=== PATIENT | female | born 1990 ===

== ENCOUNTER 2020-12-23 15:14 | Emergency (ER) | payer OTHER ==
[~2020-12-23] VITALS: Ht 154.9 cm; Wt 81.1 kg
[2020-12-23 16:14] VITALS: BP 130/79
--- NOTE | 2020-12-23 16:19 | NUR ---
PT REC'VD DISCHARGE INSTRUCTIONS AND EDUCATION. PT HAD NO FURTHER QUESTIONS. PT AMBULATED TO DC AREA, STEADY GAIT.
== END 2020-12-23 16:25 | disposition home or self-care (01) ==
LOC: ED 15:30
DX: F33.9 Major depressive disorder, recurrent, unspecified (principal); Z76.0 Encounter for issue of repeat prescription
CPT/HCPCS: 99281